=== PATIENT | male | born 1930 | race Caucasian/White ===

== ENCOUNTER 2016-06-18 15:01 | Outpatient (CLI) | payer OTHER ==
[2016-06-18 16:03] LABS: eGFR (African) > 60; eGFR (Non-African) > 60
== END 2016-06-18 15:02 ==
LOC: LAB 15:01
PROVIDERS: ATTEND Family Medicine
DX: E03.9 Hypothyroidism, unspecified (principal); I10 Essential (primary) hypertension
CPT/HCPCS: 36415; 80053; 84443

== ENCOUNTER 2017-02-18 10:24 | Emergency (ER) | payer OTHER ==
[2017-02-18 11:00] LABS: MEAN CORPUSCULAR HEMOGLOBIN 27.5 pg (28.0-34.0); MEAN CORPUSCULAR VOLUME 88.6 fl (80.0-100.0)
[2017-02-18] MEDS ORDERED: 0.9 % SODIUM CHLORIDE 1,000 ML IV ONE (11:07)
[2017-02-18 11:12] LABS: eGFR (African) > 60; eGFR (Non-African) 56
[2017-02-18 11:21] LABS: MONOCYTES % 1 % (0-11); SEGMENTED NEUTROPHILS % 96 % (39-79)
[2017-02-18] MEDS ORDERED: 0.9 % SODIUM CHLORIDE 100 ML IV ONE (12:07)
[2017-02-18] MEDS ORDERED: PIPERACILLIN SODIUM/TAZOBACTAM 3.375 GM VIAL IV ONE (12:07)
[2017-02-18] MEDS ORDERED: PIPERACILLIN SODIUM/TAZOBACTAM 3.375 GM in 0.9 % SODIUM CHLORIDE 50 ML IV SCH (12:15)
--- NOTE | 2017-02-18 12:15 | ED Physician Documentation ---
General Adult - HISTORIAN Historian: patient, spouse - HPI Stated Complaint: Weakness, confusion Chief Complaint: General Adult Onset: days ago (Saturday) Further Comments: yes (86 year old male patient brought in by family for evaluation. reports progressive weakness since Saturday, states she has been holding the patient's BP medications because his BP was "low". states patient has not been eating or drinking for the past 2 days. Reports patient fell at home this morning from standing.) - ROS CONST: recent illness (Penectomy September 2016), weakness EYES/ENT: none CVS/RESP: none. denies: chest pain, shortness of breath, cough GI/: none, problems urinating (related to surgery - incontinent) MS/SKIN/LYMPH: none NEURO/PSYCH: difficulty walking (related to weakness) - PAST HX Past History: hypertension, other (Hypothyroidism, malignant neoplasm of penis) Other History: none Surgeries/Procedures: other (penectomy September 2016) Allergies/Adverse Reactions: Allergies Allergy/AdvReac Type Severity Reaction Status Date / Time No Known Drug Allergies Allergy Verified 02/18/17 11:02 - SOCIAL HX Smoking History: non-smoker - FAMILY HX Family History: No - VITAL SIGNS Vital Signs: Vital Signs Temp Pulse Resp BP Pulse Ox 98.4 F 89 22 114/65 99 02/18/17 10:47 02/18/17 12:00 02/18/17 10:47 02/18/17 10:47 02/18/17 12:00 - REVIEWED ASSESSMENTS Nursing Assessment Reviewed: Yes Vitals Reviewed: Yes Progress - Progress Progress: Penectomy wound examined - very foul odor. Purulent pus drainage from uretral drainage opening below scrotom. Entire perineum with erythema. Will not cath for urine at this time due to surgical history. Reviewed lab and xray finding with family. Recommended transfer to higher level of care due to new onset Afib, Sepsis, AMI and CHF. Family is in agreement with plan. Patient wishes to be a DNR with aggressive treatment. [address] Campbell - will accept patient to progressive care unit. Orders to start Vancomycin and Zosyn. 1300 VS stable at transfer. Zosyn complete, Vancomycin infusing. - EKG/XRAY/CT EKG: rhythm (Afib - new onset, Rate 92) XRAY: chest (CHF, cardiomegally ) ED Results Lab/Radiology - Lab Results Lab Results: Lab Results 02/18/17 02/18/17 02/18/17 10:50 10:50 10:50 WBC RBC Hgb Hct MCV MCH MCHC RDW Plt Count Seg Neutrophils % Band Neutrophils % Lymphocytes % Monocytes % Plt Morphology Comment RBC Morph Comment Sodium 132 mmol/L L mmol/L (136-145) Potassium 3.1 mmol/L L mmol/L (3.5-5.1) Chloride 95 mmol/L L mmol/L (98-107) Carbon Dioxide 32 mmol/L H mmol/L (22-30) BUN 24 mg/dL H mg/dL (9-20) Creatinine 1.30 mg/dL H mg/dL (0.66-1.25) Estimated Creat Clear 41 Est GFR ( Amer) > 60 (60 - ) Est GFR (Non-Af Amer) 56 L (60 - ) Glucose 137 mg/dL H mg/dL (74-106) Calcium 12.1 mg/dL H mg/dL (8.4-10.2) Total Bilirubin 0.5 mg/dL mg/dL (0.2-1.3) AST 22 U/L U/L (15-46) ALT 27 U/L U/L (13-69) Alkaline Phosphatase 177 U/L H U/L (38-126) Troponin I 0.62 ng/mL H ng/mL (0.03-0.06) NT-Pro-B Natriuret Pep 95308.3 pg/mL H pg/mL (15.0-450.0) Total Protein 7.2 g/dL g/dL (6.3-8.2) Albumin 2.7 g/dL L g/dL (3.5-5.0) 02/18/17 10:50 WBC 26.00 K/ul H K/ul (4.00-12.00) RBC 3.78 M/ul L M/ul (3.90-5.20) Hgb 10.4 g/dL L g/dL (12.0-18.0) Hct 33.5 % L % (37.0-53.0) MCV 88.6 fl fl (80.0-100.0) MCH 27.5 pg L pg (28.0-34.0) MCHC 31.0 g/dL g/dL (30.0-36.0) RDW 14.4 % H % (11.3-14.3) Plt Count 358 K/mm3 K/mm3 (130-400) Seg Neutrophils % 96 % H % (39-79) Band Neutrophils % 1 % % (0-12) Lymphocytes % 2 % L % (16-50) Monocytes % 1 % % (0-11) Plt Morphology Comment Normal (NORMAL) RBC Morph Comment Normal (NORMAL) Sodium Potassium Chloride Carbon Dioxide BUN Creatinine Estimated Creat Clear Est GFR ( Amer) Est GFR (Non-Af Amer) Glucose Calcium Total Bilirubin AST ALT Alkaline Phosphatase Troponin I NT-Pro-B Natriuret Pep Total Protein Albumin - Radiology Radiology Impressions: Examination: Portable chest History: Chest discomfort Comparison exam: None provided Findings: Single view of the chest demonstrates a prominent cardiac and mediastinal silhouette. Lung morgan without focal infiltrate. No blunting of the costophrenic margins. Apical parenchymal scarring. Osseous structures are appropriate for age. Impression: No acute pulmonary process. Electronically signed on Feb 18, 2017 11:11:51 AM SIGN LANGUAGE TEACHER by: Gonzalo Escobar - Orders Orders: ED Orders Category Date Time Status Continuous EKG monitoring Q30M Care 02/18/17 10:48 Active Continuous Pulse Oximetry Q30M Care 02/18/17 10:[address] IV Lock 1T Care 02/18/17 10:45 Active CHEST 1 VIEW [RAD] Stat Exams 02/18/17 10:48 Taken BLOOD CULTURE Stat Lab 02/18/17 10:45 Received BNP [NT-proBNP] Stat Lab 02/18/17 10:50 Completed CBC/PLATELET/DIFF Stat Lab 02/18/17 10:50 Completed CMP Stat Lab 02/18/17 10:50 Completed LACTATE Stat Lab 02/18/17 10:50 Received TROPONIN I (cTnI) Stat Lab 02/18/17 10:50 Completed UA W/MICRO IF INDICATED Stat Lab 02/18/17 10:48 Ordered 0.9 % Sodium Chloride [Normal Saline] 1,000 ml Med 02/18/17 11:07 Discontinued IV NOW 0.9 % Sodium Chloride [Sodium Chloride] 100 ml Med 02/18/17 12:07 Discontinued IV .STK-MED Piperacillin Sodium/Tazobactam [Zosyn] Med 02/18/17 12:07 Discontinued 3.375 gm IV .STK-MED ONE Piperacillin Sodium/Tazobactam [Zosyn] 3.375 gm Med 02/18/17 12:15 Ordered 0.9 % Sodium Chloride [Sodium Chloride] 50 ml IV Q6 Oxygen Daily Oxygen 02/18/17 11:00 Ordered EKG WITH COMPARISON Stat Ther 02/18/17 10:48 Completed General Adult Physical Exam - PHYSICAL EXAM GENERAL APPEARANCE: mild distress EENT: eye inspection normal, pharynx normal, TAY, no nystagmus, dry mucous membranes RESPIRATORY: no resp distress, chest non-tender, breath sounds normal CVS: heart sounds normal, equal pulses, no murmur, no gallop, PMI nml, no JVD, no friction rub, irregularly irregular rhy ABDOMEN: soft, no organomegaly, no distension, abnormal bowel sounds (hypoactive ), bruit (AA bruit noted) SKIN: warm/dry, pallor EXTREMITIES: non-tender, normal range of motion, no evidence of injury, no edema , J, ONCOLOGY REP NEURO: oriented X3, motor nml, sensation nml, depressed mood/affect (flat) Discharge Clincal Impression: New onset a-fib, History of penile cancer, status post penectomy Sepsis Qualifiers: Sepsis type: sepsis due to unspecified organism Qualified Code(s): A41.9 - Sepsis, unspecified organism CHF (congestive heart failure) Qualifiers: Congestive heart failure type: combined Congestive heart failure chronicity: acute Qualified Code(s): I50.41 - Acute combined systolic (congestive) and diastolic (congestive) heart failure AMI (acute myocardial infarction) Qualifiers: Myocardial infarction ST status: non-ST elevation myocardial infarction Qualified Code(s): I21.4 - Non-ST elevation (NSTEMI) myocardial infarction Referrals: Navneet Mar MD [Primary Care Provider] - 2 Days Condition: Serious Disposition: 02 XFER SHT-TRM HOSP Decision to Admit: NO Decision Time: 12:24
[2017-02-18] MEDS ORDERED: VANCOMYCIN HCL 1 GM in 0.9 % SODIUM CHLORIDE 500 ML IV ONE (12:24)
[2017-02-18] MEDS ORDERED: 0.9 % SODIUM CHLORIDE 250 ML IV ONE (12:26)
[2017-02-18] MEDS ORDERED: VANCOMYCIN HCL 1 GM in 0.9 % SODIUM CHLORIDE 250 ML IV ONE (12:26)
[2017-02-18] MEDS ORDERED: VANCOMYCIN HCL 1 GM VIAL IV ONE (12:26)
--- NOTE | 2017-02-18 12:44 | Diagnostic Imaging Report ---
CARO CARDOZA (CAITLYN) - ER [facility] [address] [facility].[address] [address] Report Submission Date: Feb 18, 2017 11:11:51 AM WELFARE WORKER Patient Study Name: SANDRA OLIVO Date: Feb 18, 2017 10:57:18 AM WELFARE WORKER Modality Type: CR Gender: M Description: CHEST : 30 Institution: [facility] Physician: CARO CARDOZA) - ER Examination: Portable chest History: Chest discomfort Comparison exam: None provided Findings: Single view of the chest demonstrates a prominent cardiac and mediastinal silhouette. Lung morgan without focal infiltrate. No blunting of the costophrenic margins. Apical parenchymal scarring. Osseous structures are appropriate for age. Impression: No acute pulmonary process. Electronically signed on Feb 18, 2017 11:11:51 AM WELFARE WORKER by: Gonzalo DOLAN
[2017-02-18 13:14] VITALS: BP 102/70
== END 2017-02-18 13:13 | disposition short-term general hospital (02) ==
LOC: ED 10:24
DX: I48.91 Unspecified atrial fibrillation (principal); A41.9 Sepsis, unspecified organism; I50.41 Acute combined systolic (congestive) and diastolic (congestive) heart failure; I21.4 Non-ST elevation (NSTEMI) myocardial infarction; Z85.89 Personal history of malignant neoplasm of other organs and systems
CPT/HCPCS: 71010; 80053; 83605; 83880; 84484; 85025; 87040; 93005; J2543; J3370; J7060; 96361; 96374; 99284; S1016